=== PATIENT | female | born 1995 | race Caucasian/White ===

== ENCOUNTER → 2020-10-30 | Outpatient (CLI) | payer OTHER | LOC: RAD 16:01 | DX: M54.5 Low back pain (principal); M54.6 Pain in thoracic spine; G89.29 Other chronic pain | CPT/HCPCS: 72072; 72110 ==

== ENCOUNTER → 2021-09-29 | Outpatient (CLI) | payer OTHER | LOC: EXRD 08:30 | DX: R10.9 Unspecified abdominal pain (principal) | CPT/HCPCS: 76700 ==

== ENCOUNTER 2022-02-28 00:48 | Emergency (ER) | payer BC, OTHER | END 2022-02-28 02:20 | disposition home or self-care (01) | LOC: ER1 00:48 | DX: H10.12 Acute atopic conjunctivitis, left eye (principal) | CPT/HCPCS: 99282 ==